=== PATIENT | male | born 1960 | race American Indian/Alaskan Native ===

== ENCOUNTER 2017-06-03 20:11 | Emergency (ER) | payer MEDICAID ==
[2017-06-03 20:34] VITALS: BP 165/104
[2017-06-03 21:04] LABS: Basophils % (Auto) 0.7 % (0.0-1.8); Eosinophils % (Auto) 8.6 % (0.0-4.3); Hematocrit 44.4 % (35.5-45.6); Hemoglobin 15.3 gm/dl (11.8-15.2); Mean Corpuscular HGB Conc 34 % (32-34); Mean Corpuscular Hemoglobin 32 pg (28-32); Mean Corpuscular Volume 94 fl (84-94); Platelet Count 189 K/mm3 (140-440); Red Blood Count 4.74 M/mm3 (3.65-5.03); Red Cell Distribution Width 15.6 % (13.2-15.2); White Blood Count 6.5 K/mm3 (4.5-11.0)
[2017-06-03 21:25] LABS: Anion Gap 20 mmol/L; Blood Urea Nitrogen 16 mg/dL (9-20); Calcium 9.5 mg/dL (8.4-10.2); Carbon Dioxide 23 mmol/L (22-30); Chloride 98.2 mmol/L (98-107); Glucose 88 mg/dL (75-100); Potassium 4.2 mmol/L (3.6-5.0); Sodium 137 mmol/L (137-145)
[2017-06-03] MEDS ORDERED: ATROVENT IH ONE (21:45)
[2017-06-03] MEDS ORDERED: TORADOL IV ONE (21:45)
[2017-06-03] MEDS ORDERED: MAGNESIUM SULFATE 2GM/50ML 2 GM/50 ML BAG IV ONE (21:46)
[2017-06-03] MEDS ORDERED: NACL 0.9% 250ML 250 ML IV ONE (21:46)
[2017-06-03] MEDS ORDERED: PROVENTIL IH ONE (21:46)
--- NOTE | 2017-06-03 21:49 | Emergency Department Report ---
ED General Adult HPI - General Chief complaint: Dyspnea/Respdistress Stated complaint: DAVIS Time Seen by Provider: 06/03/17 21:39 Source: patient, EMS (ems notes not available at time of chart dictation), RN notes reviewed, old records reviewed Mode of arrival: Stretcher Limitations: Other (patient is a very poor historian) - History of Present Illness Initial comments: This is a 56-year-old male, he is previously unknown to me. Past medical history includes HIV, currently on highly active antiretroviral therapy, he does not know his CD4 count, he does not know his viral load. Patient also has a history of COPD, he does not think that he is home oxygen dependent. The patient was recently admitted to the hospital for presumed COPD exacerbation on April 2017. He had an inconclusive CT scan of the chest, which demonstrated no large segmental emboli, but the distal segments were not well visualized. His bilateral lower extremity DVT study was read as negative. The patient is brought to the hospital by EMS today for cough, wheezing, chest tightness, shortness of breath. Patient cannot describe exacerbating or relieving factors. Patient also complains of chest tightness, and congestion. Patient complains of mucous production. -: Gradual Location: chest, back Severity scale (0 -10): 6 Quality: aching Consistency: intermittent Improves with: none Associated Symptoms: chest pain, cough, shortness of breath - Related Data Home Medications Medication Instructions Recorded Confirmed Last Taken Prezcobix 800 mg-150 mg (Nf) 1 mg PO DAILY 04/13/17 06/03/17 06/02/17 Truvada 167 mg-250 mg Tablet 200 mg PO DAILY 04/13/17 06/03/17 06/02/17 Previous Rx's Medication Instructions Recorded Last Taken Type Colchicine [Colcrys] 0.6 mg PO BID PRN #60 tablet 04/14/17 06/02/17 Rx Cyclobenzaprine [Flexeril 10 MG 10 mg PO TID PRN #14 tablet 04/14/17 Unknown Rx TAB] Fluticasone [Flonase] 50 mcg NS QDAY #1 bottle 04/14/17 Unknown Rx Gabapentin [Neurontin] 400 mg PO Q8H #90 capsule 04/14/17 06/02/17 Rx HYDROcodone/APAP 7.5-325 [[place] 1 each PO Q6HR PRN #14 tablet 04/14/17 Unknown Rx 7.5-325 mg TAB] Lopinavir/Ritonavir [Kal[place] 1 each PO BID tablet 04/14/17 Unknown Rx 200-50 mg] Loratadine [Claritin] 10 mg PO DAILY #30 tablet 04/14/17 Unknown Rx predniSONE [Deltasone] 10 mg PO .TAPER #48 tab 04/14/17 Unknown Rx Albuterol Sulfate [Albuterol 0.63% 0.63 mg IH Q4HR PRN #2 ml 06/04/17 Unknown Rx NEBS] Albuterol Sulfate [Proair 90 mcg IH Q4HR PRN #2 aer.pow.ba 06/04/17 Unknown Rx Respiclick] Fluticasone [Flonase] 1 spray NS QDAY #1 bottle 06/04/17 Unknown Rx Ibuprofen [Motrin] 600 mg PO Q8H PRN #30 tablet 06/04/17 Unknown Rx Ipratropium [place] [Atrovent Hfa] 12.9 gm IH Q4HR #2 hfa.aer.ad 06/04/17 Unknown Rx Ipratropium [Atrovent NEB] 0.5 mg IH Q4HR #2 ml 06/04/17 Unknown Rx predniSONE [Deltasone] 40 mg PO QDAY #8 tab 06/04/17 Unknown Rx Allergies Allergy/AdvReac Type Severity Reaction Status Date / Time orange juice [[place] Juice] Allergy Swelling Verified 05/11/14 10:33 FRUIT Allergy Swelling Uncoded 09/07/14 09:26 ED Review of Systems ROS: Stated complaint: DAVIS Other details as noted in HPI Constitutional: malaise, weakness. denies: fever Eyes: denies: vision change ENT: congestion. denies: epistaxis Respiratory: cough, shortness of breath, SOB with exertion, SOB at rest, wheezing Cardiovascular: dyspnea on exertion Gastrointestinal: denies: vomiting Genitourinary: denies: dysuria Musculoskeletal: back pain, arthralgia, myalgia Skin: denies: lesions Neurological: weakness Psychiatric: as per HPI ED Past Medical Hx - Past Medical History Hx Arthritis: Yes Hx Psychiatric Treatment: Yes (out pt) Hx Asthma: Yes Hx COPD: Yes Hx HIV: Yes Additional medical history: chronic pain. HYPERTHYROID. GOUT - Surgical History Additional Surgical History: right hip surgery. HERNIA REPAIR - Social History Smoking Status: Current Every Day Smoker Substance Use Type: None - Medications Home Medications: Home Medications Medication Instructions Recorded Confirmed Last Taken Type Prezcobix 800 mg-150 mg (Nf) 1 mg PO DAILY 04/13/17 06/03/17 06/02/17 History Truvada 167 mg-250 mg Tablet 200 mg PO DAILY 04/13/17 06/03/17 06/02/17 History Colchicine [Colcrys] 0.6 mg PO BID PRN #60 tablet 04/14/17 06/03/17 06/02/17 Rx Cyclobenzaprine [Flexeril 10 MG 10 mg PO TID PRN #14 tablet 04/14/17 06/03/17 Unknown Rx TAB] Fluticasone [Flonase] 50 mcg NS QDAY #1 bottle 04/14/17 06/03/17 Unknown Rx Gabapentin [Neurontin] 400 mg PO Q8H #90 capsule 04/14/17 06/03/17 06/02/17 Rx HYDROcodone/APAP 7.5-325 [[place] 1 each PO Q6HR PRN #14 tablet 04/14/17 06/03/17 Unknown Rx 7.5-325 mg TAB] Lopinavir/Ritonavir [[place] 1 each PO BID tablet 04/14/17 06/03/17 Unknown Rx 200-50 mg] Loratadine [Claritin] 10 mg PO DAILY #30 tablet 04/14/17 06/03/17 Unknown Rx predniSONE [Deltasone] 10 mg PO .TAPER #48 tab 04/14/17 06/03/17 Unknown Rx Albuterol Sulfate [Albuterol 0.63% 0.63 mg IH Q4HR PRN #2 ml 06/04/17 Unknown Rx NEBS] Albuterol Sulfate [Proair 90 mcg IH Q4HR PRN #2 aer.pow.ba 06/04/17 Unknown Rx Respiclick] Fluticasone [Flonase] 1 spray NS QDAY #1 bottle 06/04/17 Unknown Rx Ibuprofen [Motrin] 600 mg PO Q8H PRN #30 tablet 06/04/17 Unknown Rx Ipratropium [place] [Atrovent Hfa] 12.9 gm IH Q4HR #2 hfa.aer.ad 06/04/17 Unknown Rx Ipratropium [Atrovent NEB] 0.5 mg IH Q4HR #2 ml 06/04/17 Unknown Rx predniSONE [Deltasone] 40 mg PO QDAY #8 tab 06/04/17 Unknown Rx ED Physical Exam - General Limitations: No Limitations General appearance: alert, in no apparent distress - Head Head exam: Present: atraumatic, normocephalic - Eye Eye exam: Present: normal appearance, EOMI. Absent: nystagmus - ENT ENT exam: Present: normal exam, normal orophraynx, mucous membranes moist, normal external ear exam - Neck Neck exam: Present: normal inspection - Respiratory Respiratory exam: Present: wheezes, rhonchi, chest wall tenderness. Absent: respiratory distress - Cardiovascular Cardiovascular Exam: Present: regular rate, normal rhythm, normal heart sounds. Absent: bradycardia, tachycardia, irregular rhythm, systolic murmur, diastolic murmur, rubs, gallop - GI/Abdominal GI/Abdominal exam: Present: soft, normal bowel sounds. Absent: distended, tenderness, guarding, rebound, rigid, pulsatile mass - Rectal Rectal exam: Present: deferred - Extremities Exam Extremities exam: Present: normal inspection, full ROM, normal capillary refill. Absent: tenderness, pedal edema, joint swelling, calf tenderness - Back Exam Back exam: Present: normal inspection, full ROM. Absent: tenderness, CVA tenderness (R), CVA tenderness (L), muscle spasm, paraspinal tenderness, vertebral tenderness - Neurological Exam Neurological exam: Present: alert, oriented X3, normal gait, other (Extraocular movements intact. Tongue midline. No facial droop. Facial sensation intact to light touch in the V1, V2, V3 distribution bilaterally. 5 and 5 strength in 4 extremities.. Sensation is intact to light touch in 4 extremities.). Absent : motor sensory deficit - Psychiatric Psychiatric exam: Present: normal affect, normal mood - Skin Skin exam: Present: warm, dry, intact, normal color. Absent: rash ED Course Vital Signs 06/03/17 06/03/17 06/03/17 20:33 20:56 21:52 Temperature 98.4 F Pulse Rate 96 H Pulse Rate [ 114 H Bilateral] Respiratory 20 20 Rate Respiratory 20 Rate [Bilateral ] Blood Pressure 165/104 [Left] O2 Sat by Pulse 97 96 Oximetry 06/03/17 06/03/17 22:14 23:55 Temperature 99.0 F Pulse Rate 110 H Pulse Rate [ 108 H Bilateral] Respiratory 18 Rate Respiratory 30 H Rate [Bilateral ] Blood Pressure [Left] O2 Sat by Pulse 94 Oximetry - Reevaluation(s) Reevaluation #1: 06/04/17 01:13 Patient observed in the ER for a prolonged period of time. He is able to ambulate without desaturation or symptomatology. He is currently sleeping currently on the stretcher in no distress, and he has been noted to be playing on a cellular phone multiple times without difficulty. ED Medical Decision Making - Lab Data Result diagrams: 06/03/17 20:45 06/03/17 20:45 Vital Signs 06/03/17 06/03/17 06/03/17 20:33 20:56 21:52 Temperature 98.4 F Pulse Rate 96 H Pulse Rate [ 114 H Bilateral] Respiratory 20 20 Rate Respiratory 20 Rate [Bilateral ] Blood Pressure 165/104 [Left] O2 Sat by Pulse 97 96 Oximetry 06/03/17 06/03/17 22:14 23:55 Temperature 99.0 F Pulse Rate 110 H Pulse Rate [ 108 H Bilateral] Respiratory 18 Rate Respiratory 30 H Rate [Bilateral ] Blood Pressure [Left] O2 Sat by Pulse 94 Oximetry Lab Results 06/03/17 06/03/17 06/03/17 Range/Units 20:45 20:45 20:45 WBC 6.5 (4.5-11.0) K/mm3 RBC 4.74 (3.65-5.03) M/mm3 Hgb 15.3 H (11.8-15.2) gm/dl Hct 44.4 (35.5-45.6) % MCV 94 (84-94) fl MCH 32 (28-32) pg MCHC 34 (32-34) % RDW 15.6 H (13.2-15.2) % Plt Count 189 (140-440) K/mm3 Lymph % (Auto) 15.1 (13.4-35.0) % [place] % (Auto) 10.6 H (0.0-7.3) % Eos % (Auto) 8.6 H (0.0-4.3) % Baso % (Auto) 0.7 (0.0-1.8) % Lymph # 1.0 L (1.2-5.4) K/mm3 [place] # 0.7 (0.0-0.8) K/mm3 Eos # 0.6 H (0.0-0.4) K/mm3 Baso # 0.0 (0.0-0.1) K/mm3 Seg Neutrophils % 65.0 (40.0-70.0) % Seg Neutrophils # 4.3 (1.8-7.7) K/mm3 PT 12.2 (12.2-14.9) Sec. INR 0.86 L (0.87-1.13) Sodium 137 (137-145) mmol/L Potassium 4.2 (3.6-5.0) mmol/L Chloride 98.2 (98-107) mmol/L Carbon Dioxide 23 (22-30) mmol/L Anion Gap 20 mmol/L BUN 16 (9-20) mg/dL Creatinine 1.3 (0.8-1.5) mg/dL Estimated GFR > 60 ml/min BUN/Creatinine Ratio 12.30 % Glucose 88 (75-100) mg/dL Calcium 9.5 (8.4-10.2) mg/dL Lactate Dehydrogenase (91-180) units/L Troponin T < 0.010 (0.00-0.029) ng/mL NT-Pro-B Natriuret Pep (0-900) pg/mL 06/03/17 06/03/17 Range/Units 23:01 23:01 WBC (4.5-11.0) K/mm3 RBC (3.65-5.03) M/mm3 Hgb (11.8-15.2) gm/dl Hct (35.5-45.6) % MCV (84-94) fl MCH (28-32) pg MCHC (32-34) % RDW (13.2-15.2) % Plt Count (140-440) K/mm3 Lymph % (Auto) (13.4-35.0) % [place] % (Auto) (0.0-7.3) % Eos % (Auto) (0.0-4.3) % Baso % (Auto) (0.0-1.8) % Lymph # (1.2-5.4) K/mm3 [place] # (0.0-0.8) K/mm3 Eos # (0.0-0.4) K/mm3 Baso # (0.0-0.1) K/mm3 Seg Neutrophils % (40.0-70.0) % Seg Neutrophils # (1.8-7.7) K/mm3 PT (12.2-14.9) Sec. INR (0.87-1.13) Sodium (137-145) mmol/L Potassium (3.6-5.0) mmol/L Chloride (98-107) mmol/L Carbon Dioxide (22-30) mmol/L Anion Gap mmol/L BUN (9-20) mg/dL Creatinine (0.8-1.5) mg/dL Estimated GFR ml/min BUN/Creatinine Ratio % Glucose (75-100) mg/dL Calcium (8.4-10.2) mg/dL Lactate Dehydrogenase 170 (91-180) units/L Troponin T < 0.010 (0.00-0.029) ng/mL NT-Pro-B Natriuret Pep 90.25 (0-900) pg/mL - EKG Data -: EKG Interpreted by Me - EKG Data 06/04/17 01:14 EKG #1 demonstrates , 105 bpm, tachycardia, normal axis, intervals, not morphologically consistent with STEMI, appears unchanged when compared to prior EKG from April 2017. Repeat EKG is unchanged with the exception of resolution of tachycardia. - Radiology Data Radiology results: image reviewed interpreted by me: X-ray of the chest demonstrates no acute disease or changes, appears unchanged when compared to prior - Medical Decision Making Differential diagnosis: Costochondritis, COPD exacerbation, pneumonia, bronchitis, myocarditis, pericarditis, acute coronary syndrome, drug-seeking behavior Assessment and plan: 56-year-old male with known history of COPD, with cough, wheezing, chest tightness. EKG unremarkable 2, unchanged from prior, troponin negative 2, LDH negative, clinical history most likely consistent with COPD exacerbation. Mild tachycardia appreciated, this is most likely secondary to albuterol administration. Low risk by PTA score, low risk by heart score, low risk by well's criteria, I do believe patient requires admission to the hospital at this time. He will be discharged with albuterol, Atrovent, steroids, instructions to follow up with outpatient primary care and pulmonology. Return precautions are reviewed. Critical care attestation.: If time is entered above; I have spent that time in minutes in the direct care of this critically ill patient, excluding procedure time. ED Disposition Clinical Impression: COPD (chronic obstructive pulmonary disease) Disposition: DC-01 TO HOME OR SELFCARE Is pt being admited?: No Does the pt Need Aspirin: No Condition: Stable Instructions: Chronic Obstructive Pulmonary Disease (ED) Additional Instructions: Continue current outpatient medications. Follow up with the primary care doctor or nuclear medicine specialist within the next week. Return to the ER right away with new pain, worsened pain, migration of pain, fevers, chills, confusion , intractable nausea or vomiting, inability to tolerate liquid feeds. Prescriptions: Albuterol Sulfate [Albuterol 0.63% NEBS] 0.63 mg IH Q4HR PRN #2 ml PRN Reason: Wheezing Albuterol Sulfate [Proair Respiclick] 90 mcg IH Q4HR PRN #2 aer.pow.ba PRN Reason: Wheezing Fluticasone [Flonase] 1 spray NS QDAY #1 bottle Ibuprofen [Motrin] 600 mg PO Q8H PRN #30 tablet PRN Reason: Pain Ipratropium [Atrovent NEB] 0.5 mg IH Q4HR #2 ml Ipratropium [place] [Atrovent Hfa] 12.9 gm IH Q4HR #2 hfa.aer.ad predniSONE [Deltasone] 40 mg PO QDAY #8 tab Referrals: PRIMARY CARE, [Primary Care Provider] - 3-5 Days BARRY VALDEZ MD [Staff Physician] - 3-5 Days LUCIA HOLLAND MD [Staff Physician] - 3-5 Days
[2017-06-03 23:18] LABS: INR 0.86 (0.87-1.13)
--- NOTE | 2017-06-04 08:08 | XRay Report ---
ROUTINE CHEST, TWO VIEWS: HISTORY: Shortness of breath. The trachea, heart, mediastinal contour, lung do and bony thorax are unremarkable. IMPRESSION: No acute cardiopulmonary process. No significant change since 04/11/17.
== END 2017-06-04 01:40 | disposition home or self-care (01) ==
LOC: ED 20:11
DX: J44.9 Chronic obstructive pulmonary disease, unspecified (principal); M19.90 Unspecified osteoarthritis, unspecified site; F17.200 Nicotine dependence, unspecified, uncomplicated; Z91.018 Allergy to other foods
CPT/HCPCS: 36415; 71020; 80048; 83615; 83880; 84484; 85025; 85610; 93005; 93010; 94640; 96365; 96375; 99284; J1885; J2930; J3475; J7050

== ENCOUNTER 2018-06-07 10:25 | Emergency (ER) | payer MEDICAID ==
[2018-06-07 11:46] LABS: Bilirubin,Urine NEG (Negative); Blood,Urine MOD (Negative); Color,Urine Yellow (Yellow); Protein,Urine <15 mg/dL mg/dL (Negative); Urobilinogen,Urine < 2.0 mg/dL (<2.0)
[2018-06-07] MEDS ORDERED: TORADOL IM ONE (13:30)
--- NOTE | 2018-06-07 13:58 | Emergency Department Report ---
ED Back Pain/Injury HPI - General Chief Complaint: Back Pain/Injury Stated Complaint: SEVERE KIDNEY PAIN/DARK URINATION Time Seen by Provider: 06/07/18 13:27 Source: patient Limitations: No Limitations - History of Present Illness Initial Comments: This is a 57-year-old male nontoxic, well nourished in appearance, no acute signs of distress presents to the ED with c/o of acute on chronic lower back pain. Patient stated that the past 2 days he was moving and developed this pain. Patient states has history of sciatica nerve pain which is similar symptoms as today. Patient states that pain radiates through to his bilateral lower extremity. Patient denies any trauma. Denies any bladder or bowel instability. Patient denies any urinary symptoms. Denies any fever, chills, nausea, vomiting, headache, stiff neck, chest pain or shortness of breath. Patient denies any numbness or tingling. Denies any allergies. MD Complaint: back pain Similar Symptoms Previously: Yes Radiation: left leg, right leg Severity: mild Severity scale (0 -10): 8 Quality: aching Consistency: intermittent Improves With: immobilization, supine, sitting upright Worsens With: movement, walking Context: while lifting, turning/twisting Associated Symptoms: denies: confusion, weakness, chest pain, numbness, difficulty walking, cough, difficulty urinating, diaphoresis, incontinence, fever/chills, constipation, headaches, abdominal pain, loss of appetite, malaise , nausea/vomiting, rash, seizure, shortness of breath, syncope - Related Data Home Medications Medication Instructions Recorded Confirmed Last Taken Prezcobix 800 mg-150 mg (Nf) 1 mg PO DAILY 04/13/17 06/03/17 06/02/17 Truvada 167 mg-250 mg Tablet 200 mg PO DAILY 04/13/17 06/03/17 06/02/17 Previous Rx's Medication Instructions Recorded Last Taken Type Colchicine [Colcrys] 0.6 mg PO BID PRN #60 tablet 04/14/17 06/02/17 Rx Cyclobenzaprine [Flexeril 10 MG 10 mg PO TID PRN #14 tablet 04/14/17 Unknown Rx TAB] Fluticasone [Flonase] 50 mcg NS QDAY #1 bottle 04/14/17 Unknown Rx Gabapentin [Neurontin] 400 mg PO Q8H #90 capsule 04/14/17 06/02/17 Rx HYDROcodone/APAP 7.5-325 [[place] 1 each PO Q6HR PRN #14 tablet 04/14/17 Unknown Rx 7.5-325 mg TAB] Lopinavir/Ritonavir [[place] 1 each PO BID tablet 04/14/17 Unknown Rx 200-50 mg] Loratadine [Claritin] 10 mg PO DAILY #30 tablet 04/14/17 Unknown Rx predniSONE [Deltasone] 10 mg PO .TAPER #48 tab 04/14/17 Unknown Rx Albuterol Sulfate [Albuterol 0.63% 0.63 mg IH Q4HR PRN #2 ml 06/04/17 Unknown Rx NEBS] Albuterol Sulfate [Proair 90 mcg IH Q4HR PRN #2 aer.pow.ba 06/04/17 Unknown Rx Respiclick] Fluticasone [Flonase] 1 spray NS QDAY #1 bottle 06/04/17 Unknown Rx Ibuprofen [Motrin] 600 mg PO Q8H PRN #30 tablet 06/04/17 Unknown Rx Ipratropium [place] [Atrovent Hfa] 12.9 gm IH Q4HR #2 hfa.aer.ad 06/04/17 Unknown Rx Ipratropium [Atrovent NEB] 0.5 mg IH Q4HR #2 ml 06/04/17 Unknown Rx predniSONE [Deltasone] 40 mg PO QDAY #8 tab 06/04/17 Unknown Rx Cyclobenzaprine [Flexeril] 10 mg PO QHS PRN #10 tablet 06/07/18 Unknown Rx Ibuprofen [Motrin] 600 mg PO Q8H PRN #30 tablet 06/07/18 Unknown Rx Allergies Allergy/AdvReac Type Severity Reaction Status Date / Time aspirin Allergy Unknown Verified 06/07/18 11:26 orange juice [[place] Juice] Allergy Swelling Verified 05/11/14 10:33 FRUIT Allergy Swelling Uncoded 09/07/14 09:26 ED Review of Systems ROS: Stated complaint: SEVERE KIDNEY PAIN/DARK URINATION Other details as noted in HPI Constitutional: denies: chills, fever Eyes: denies: eye pain, eye discharge, vision change ENT: denies: ear pain, throat pain Respiratory: denies: cough, shortness of breath, wheezing Cardiovascular: denies: chest pain, palpitations Endocrine: no symptoms reported Gastrointestinal: denies: abdominal pain, nausea, diarrhea Genitourinary: denies: urgency, dysuria Musculoskeletal: back pain. denies: joint swelling, arthralgia Skin: denies: rash, lesions Neurological: denies: headache, weakness, paresthesias Psychiatric: denies: anxiety, depression Hematological/Lymphatic: denies: easy bleeding, easy bruising ED Past Medical Hx - Past Medical History Hx Arthritis: Yes Hx Psychiatric Treatment: Yes (Manic Depression) Hx Asthma: Yes Hx COPD: Yes Hx HIV: Yes (-undetectable 06/07/2018) Additional medical history: chronic pain. HYPERTHYROID. GOUT - Surgical History Additional Surgical History: right hip surgery. HERNIA REPAIR - Social History Smoking Status: Current Every Day Smoker Substance Use Type: None - Medications Home Medications: Home Medications Medication Instructions Recorded Confirmed Last Taken Type Prezcobix 800 mg-150 mg (Nf) 1 mg PO DAILY 04/13/17 06/03/17 06/02/17 History Truvada 167 mg-250 mg Tablet 200 mg PO DAILY 04/13/17 06/03/17 06/02/17 History Colchicine [Colcrys] 0.6 mg PO BID PRN #60 tablet 04/14/17 06/03/17 06/02/17 Rx Cyclobenzaprine [Flexeril 10 MG 10 mg PO TID PRN #14 tablet 04/14/17 06/03/17 Unknown Rx TAB] Fluticasone [Flonase] 50 mcg NS QDAY #1 bottle 04/14/17 06/03/17 Unknown Rx Gabapentin [Neurontin] 400 mg PO Q8H #90 capsule 04/14/17 06/03/17 06/02/17 Rx HYDROcodone/APAP 7.5-325 [[place] 1 each PO Q6HR PRN #14 tablet 04/14/17 06/03/17 Unknown Rx 7.5-325 mg TAB] Lopinavir/Ritonavir [[place] 1 each PO BID tablet 04/14/17 06/03/17 Unknown Rx 200-50 mg] Loratadine [Claritin] 10 mg PO DAILY #30 tablet 04/14/17 06/03/17 Unknown Rx predniSONE [Deltasone] 10 mg PO .TAPER #48 tab 04/14/17 06/03/17 Unknown Rx Albuterol Sulfate [Albuterol 0.63% 0.63 mg IH Q4HR PRN #2 ml 06/04/17 Unknown Rx NEBS] Albuterol Sulfate [Proair 90 mcg IH Q4HR PRN #2 aer.pow.ba 06/04/17 Unknown Rx Respiclick] Fluticasone [Flonase] 1 spray NS QDAY #1 bottle 06/04/17 Unknown Rx Ibuprofen [Motrin] 600 mg PO Q8H PRN #30 tablet 06/04/17 Unknown Rx Ipratropium [place] [Atrovent Hfa] 12.9 gm IH Q4HR #2 hfa.aer.ad 06/04/17 Unknown Rx Ipratropium [Atrovent NEB] 0.5 mg IH Q4HR #2 ml 06/04/17 Unknown Rx predniSONE [Deltasone] 40 mg PO QDAY #8 tab 06/04/17 Unknown Rx Cyclobenzaprine [Flexeril] 10 mg PO QHS PRN #10 tablet 06/07/18 Unknown Rx Ibuprofen [Motrin] 600 mg PO Q8H PRN #30 tablet 06/07/18 Unknown Rx ED Physical Exam - General Limitations: No Limitations General appearance: alert, in no apparent distress - Head Head exam: Present: atraumatic, normocephalic - Eye Eye exam: Present: normal appearance Pupils: Present: normal accommodation - ENT ENT exam: Present: normal exam, mucous membranes moist - Neck Neck exam: Present: normal inspection, full ROM. Absent: tenderness, meningismus, lymphadenopathy - Respiratory Respiratory exam: Present: normal lung sounds bilaterally. Absent: respiratory distress, wheezes, rales, rhonchi, stridor, chest wall tenderness, accessory muscle use, decreased breath sounds, prolonged expiratory - Cardiovascular Cardiovascular Exam: Present: regular rate, normal rhythm, normal heart sounds. Absent: bradycardia, tachycardia, irregular rhythm, systolic murmur, diastolic murmur, rubs, gallop - GI/Abdominal GI/Abdominal exam: Present: soft, normal bowel sounds. Absent: distended, tenderness, guarding, rebound, rigid, diminished bowel sounds - Rectal Rectal exam: Present: deferred - Extremities Exam Extremities exam: Present: normal inspection, full ROM, normal capillary refill - Back Exam Back exam: Present: normal inspection, full ROM, paraspinal tenderness (lumbar paraspinal). Absent: tenderness, CVA tenderness (R), CVA tenderness (L), muscle spasm, vertebral tenderness, rash noted - Expanded Back Exam Expanded Back exam: Absent: saddle anesthesia Back exam: Negative Straight Leg Raising: Left, Right - Neurological Exam Neurological exam: Present: alert, oriented X3, normal gait - Psychiatric Psychiatric exam: Present: normal affect, normal mood - Skin Skin exam: Present: warm, dry, intact, normal color. Absent: rash ED Course Vital Signs 06/07/18 06/07/18 11:15 13:35 Temperature 98 F Pulse Rate 78 Respiratory 18 16 Rate Blood Pressure 133/78 O2 Sat by Pulse 100 Oximetry - Reevaluation(s) Reevaluation #1: 06/07/18 13:55 Patient is speaking in full sentences with no signs of distress noted. ED Medical Decision Making - Medical Decision Making This is a 57-year-old male that presents with low back strain. Patient is stable was examined by me. There is no spinal tenderness. There is no cauda equina syndrome during examination. No bladder or bowel instability. Patient received Toradol 30 mg IM and Prednisone in the ED which preceded his symptoms has resolved and subsided. Patient is discharged with muscle relaxant and Motrin. Patient was instructed not to operate any machinery while taking muscle relaxant as they cause her drowsiness. Patient was referred to Follow- up with a primary care doctor in 3-5 days or if symptoms worsen and continue return to emergency room as soon as possible. At time of discharge, the patient does not seem toxic or ill in appearance. No acute signs of distress noted. Patient agrees to discharge treatment plan of care. No further questions noted by the patient. This chart is dictated with using [employer] Dictation Program Critical care attestation.: If time is entered above; I have spent that time in minutes in the direct care of this critically ill patient, excluding procedure time. ED Disposition Clinical Impression: Low back strain Qualifiers: Encounter type: initial encounter Qualified Code(s): S39.012A - Strain of muscle, fascia and tendon of lower back, initial encounter Disposition: TO HOME OR SELFCARE Is pt being admited?: No Does the pt Need Aspirin: No Condition: Stable Instructions: Low Back Strain (ED), Cyclobenzaprine (By mouth) Additional Instructions: Follow-up with your primary care doctor in 3-5 days or if symptoms worsen such as bladder or bowel stability, chest pain, short of breath, numbness or tingling sensation in extremities, headache, dizziness, visual changes, nausea vomiting, or abdominal pain, return back to emergency room as was possible. Take ibuprofen and Flexeril as prescribed. Do not operate heavy machinery while taking Flexeril due to sedation Prescriptions: Cyclobenzaprine [Flexeril] 10 mg PO QHS PRN #10 tablet PRN Reason: Muscle Spasm Ibuprofen [Motrin] 600 mg PO Q8H PRN #30 tablet PRN Reason: Pain Referrals: BARRY HERNÁNDEZ MD [Primary Care Provider] - 3-5 Days PRIMARY CARE, [Referring] - 3-5 Days [facility] [Outside] - 3-5 Days
[2018-06-07 14:08] VITALS: BP 131/80
== END 2018-06-07 14:07 | disposition home or self-care (01) ==
LOC: ED 10:25
DX: S39.012A Strain of muscle, fascia and tendon of lower back, initial encounter (principal); M19.90 Unspecified osteoarthritis, unspecified site; J44.9 Chronic obstructive pulmonary disease, unspecified; M10.9 Gout, unspecified; E05.90 Thyrotoxicosis, unspecified without thyrotoxic crisis or storm; F17.200 Nicotine dependence, unspecified, uncomplicated; G89.29 Other chronic pain; F33.9 Major depressive disorder, recurrent, unspecified; Z91.018 Allergy to other foods; Z88.8 Allergy status to other drugs, medicaments and biological substances; X58.XXXA Exposure to other specified factors, initial encounter; Y93.89 Activity, other specified; Y92.89 Other specified places as the place of occurrence of the external cause; Y99.8 Other external cause status
CPT/HCPCS: 81001; 96372; 99282; J1885

== ENCOUNTER 2021-02-27 17:07 | Emergency (ER) | payer MEDICAID ==
--- NOTE | 2021-02-27 19:24 | Event Note ---
ED Screening Note Date of service: 02/27/21 Time: 19:23 ED Screening Note: 60-year-old male patient with history of HIV presents to the emergency department with complaints of bilateral flank pain and dark urine for 6 days. Pain is worse on the right. States he is compliant with his antiretroviral therapy and his last CD4 count was undetectable. Patient was reportedly seen in the emergency department earlier in his disease course but left without treatment. Prior to eloping, he was reportedly told "his blood looked toxic." Endorses prior history of kidney stones. General: Awake, appropriately interactive, no acute distress. Neck: Supple. Full range of motion intact. Cardiovascular: Normal peripheral perfusion. Pulmonary: No respiratory distress. Patient is speaking normally without use of accessory muscles. Skin: No apparent rashes or lesions. Neurological: No facial asymmetry. Speech is clear. Follows commands. Patient is alert and oriented. Musculoskeletal: Bilateral CVA tenderness. Bilateral flank tenderness. Psych: Cooperative. Appropriate mood and affect. Initial labs ordered; decision to pursue further diagnostic work-up (i.e. imaging) deferred to additional ED providers. I have greeted and performed a focused rapid initial assessment of this patient. A comprehensive ED assessment and evaluation of the patient, analysis of all test results, and completion of the medical decision-making process will be conducted by additional ED providers. This initial assessment/diagnostic orders/clinical plan/treatment(s) is/are subject to change based on patients health status, clinical progression and re-assessment. Further treatment and workup at subsequent clinical provider's discretion. Patient/guardian urged not to elope from the ED as their condition may be serious if not clinically assessed and managed.
[2021-02-27 20:03] LABS: Basophils % (Auto) 0.6 % (0.0-1.8); Eosinophils # (Auto) 0.3 K/mm3 (0.0-0.4); Eosinophils % (Auto) 4.1 % (0.0-4.3); Hematocrit 45.7 % (35.5-45.6); Hemoglobin 16.2 gm/dl (11.8-15.2); Lymphocytes % (Auto) 26.2 % (13.4-35.0); Mean Corpuscular HGB Conc 36 % (32-34); Mean Corpuscular Volume 97 fl (84-94); Monocytes # (Auto) 0.6 K/mm3 (0.0-0.8); Monocytes % (Auto) 8.5 % (0.0-7.3); Platelet Count 246 K/mm3 (140-440); Red Blood Count 4.74 M/mm3 (3.65-5.03); Red Cell Distribution Width 14.4 % (13.2-15.2)
[2021-02-27 20:15] LABS: Alanine Aminotransferase 20 units/L (7-56); Albumin 4.1 g/dL (3.9-5); BUN/Creatinine Ratio 17; Blood Urea Nitrogen 22 mg/dL (9-20); Hemolysis Index 12
[2021-02-27 22:20] LABS: Bilirubin,Urine NEG (Negative); Blood,Urine MOD (Negative); Color,Urine Yellow (Yellow); Mucus,Urine FEW /HPF; Protein,Urine <15 mg/dL mg/dL (Negative)
[2021-02-27] MEDS ORDERED: methylPREDNISolone Sod Succinate 125 MG/2 ML INJ IV ONE (22:49)
[2021-02-27] MEDS ORDERED: SODIUM CHLORIDE 0.9% 1000 ML 1,000 ML IV ONE (22:49)
--- NOTE | 2021-02-27 22:55 | Emergency Department Report ---
ED General Adult HPI - General Chief complaint: Urogenital-Male Stated complaint: BLOOD IN URINE PUI?: No Time Seen by Provider: 02/27/21 22:48 Source: patient Mode of arrival: Ambulatory Limitations: No Limitations - History of Present Illness Initial comments: Patient is a 60-year-old male who presents emergency room with complaints of right flank pain, gross hematuria, right mid back pain, mid back rash. Patient states his symptoms started 6 days ago. Patient dates all the symptoms are worsening. Patient states that his pain is a 10 out of 10. Patient states his flank pain is in the right flank and radiates to the right lower quadrant. Patient states that he is seeing gross hematuria as well as redness to his urine when he urinates. Patient denies clots in his urine. Patient denies fever and chills. Patient states that he has a rash to his mid back that is starting in the right back and it radiates around to the lower part of the right ribs. Patient states there are small bumps. Patient states she had chickenpox as a child. Patient denies recent travel. Patient denies recent international travel. Patient denies exposure to the novel coronavirus. Patient denies sick contacts. Patient denies fever and chills. Patient denies cough. Patient denies diarrhea. Patient denies coming in contact with anybody with symptoms of the novel coronavirus. Patient states he has history of HIV, COPD, asthma, arthritis, depression, chronic pain, hypothyroidism, gout. Patient states that he sees the infectious disease clinic clinic at this hospital and he is undetectable. -: Sudden Severity scale (0 -10): 10 Quality: stabbing Consistency: constant Improves with: rest Worsens with: movement Associated Symptoms: denies: confusion, chest pain, cough, diaphoresis, fever/chills, headaches, loss of appetite, malaise, nausea/vomiting, rash, seizure, shortness of breath, syncope, weakness - Related Data Home Medications Medication Instructions Recorded Confirmed Last Taken Prezcobix 800 mg-150 mg (Nf) 1 mg PO DAILY 04/13/17 06/03/17 06/02/17 Truvada 167 mg-250 mg Tablet 200 mg PO DAILY 04/13/17 06/03/17 06/02/17 Previous Rx's Medication Instructions Recorded Last Taken Type Colchicine [Colcrys] 0.6 mg PO BID PRN #60 tablet 04/14/17 06/02/17 Rx Cyclobenzaprine [Flexeril 10 MG 10 mg PO TID PRN #14 tablet 04/14/17 Unknown Rx TAB] Fluticasone [Flonase] 50 mcg NS QDAY #1 bottle 04/14/17 Unknown Rx Gabapentin 400 mg PO Q8H #90 capsule 04/14/17 06/02/17 Rx Lopinavir/Ritonavir (Nf) [Kaletra 1 each PO BID tablet 04/14/17 Unknown Rx 200-50 mg (Nf)] Loratadine (Nf) [Claritin (Nf)] 10 mg PO DAILY #30 tablet 04/14/17 Unknown Rx predniSONE 10 mg PO .TAPER #48 tab 04/14/17 Unknown Rx Albuterol Sulfate [Albuterol 0.63% 0.63 mg IH Q4HR PRN #2 ml 06/04/17 Unknown Rx NEBS] Albuterol Sulfate [Proair 90 mcg IH Q4HR PRN #2 aer.pow.ba 06/04/17 Unknown Rx Respiclick] Fluticasone [Flonase] 1 spray NS QDAY #1 bottle 06/04/17 Unknown Rx Ibuprofen [Motrin] 600 mg PO Q8H PRN #30 tablet 06/04/17 Unknown Rx Ipratropium [place] [Atrovent Hfa] 12.9 gm IH Q4HR #2 hfa.aer.ad 06/04/17 Unknown Rx Ipratropium [Atrovent NEB] 0.5 mg IH Q4HR #2 ml 06/04/17 Unknown Rx predniSONE [Deltasone] 40 mg PO QDAY #8 tab 06/04/17 Unknown Rx Cyclobenzaprine [Flexeril] 10 mg PO QHS PRN #10 tablet 06/07/18 Unknown Rx Ibuprofen [Motrin] 600 mg PO Q8H PRN #30 tablet 06/07/18 Unknown Rx HYDROcodone/APAP 7.5-325 [[place] 1 each PO Q6HR PRN #10 tablet 02/28/21 Unknown Rx 7.5-325 mg TAB] Sulfamethoxazole/Trimethoprim 1 each PO BID 10 Days #20 tablet 02/28/21 Unknown Rx [Bactrim DS TAB] Valacyclovir HCl [Valtrex] 1,000 mg PO TID 7 Days #21 tablet 02/28/21 Unknown Rx methylPREDNISolone [Medrol 4MG 4 mg PO DAILY 6 Days #1 tab.ds.pk 02/28/21 Unknown Rx DOSEPAK (21 tabs)] Allergies Allergy/AdvReac Type Severity Reaction Status Date / Time aspirin Allergy Unknown Verified 06/07/18 11:26 orange juice [[place] Juice] Allergy Swelling Verified 05/11/14 10:33 FRUIT Allergy Swelling Uncoded 09/07/14 09:26 ED Review of Systems ROS: Stated complaint: BLOOD IN URINE Other details as noted in HPI Constitutional: denies: chills, fever Eyes: denies: eye pain, eye discharge, vision change ENT: denies: ear pain, throat pain Respiratory: denies: cough, shortness of breath, wheezing Cardiovascular: denies: chest pain, palpitations Endocrine: no symptoms reported Gastrointestinal: as per HPI, abdominal pain. denies: nausea, diarrhea Genitourinary: as per HPI, hematuria. denies: urgency, dysuria Musculoskeletal: as per HPI, back pain. denies: joint swelling, arthralgia Skin: as per HPI, rash. denies: lesions Neurological: denies: headache, weakness, paresthesias Psychiatric: denies: anxiety, depression Hematological/Lymphatic: denies: easy bleeding, easy bruising ED Past Medical Hx - Past Medical History Previous Medical History?: Yes Hx Arthritis: Yes Hx Psychiatric Treatment: Yes (Manic Depression) Hx Asthma: Yes Hx COPD: Yes Hx HIV: Yes (-undetectable 06/07/2018) Additional medical history: chronic pain. HYPERTHYROID. GOUT - Surgical History Past Surgical History?: Yes Additional Surgical History: right hip surgery. HERNIA REPAIR - Family History Family history: no significant - Social History Smoking Status: Current Every Day Smoker Substance Use Type: None - Medications Home Medications: Home Medications Medication Instructions Recorded Confirmed Last Taken Type Prezcobix 800 mg-150 mg (Nf) 1 mg PO DAILY 04/13/17 06/03/17 06/02/17 History Truvada 167 mg-250 mg Tablet 200 mg PO DAILY 04/13/17 06/03/17 06/02/17 History Colchicine [Colcrys] 0.6 mg PO BID PRN #60 tablet 04/14/17 06/03/17 06/02/17 Rx Cyclobenzaprine [Flexeril 10 MG 10 mg PO TID PRN #14 tablet 04/14/17 06/03/17 Unknown Rx TAB] Fluticasone [Flonase] 50 mcg NS QDAY #1 bottle 04/14/17 06/03/17 Unknown Rx Gabapentin 400 mg PO Q8H #90 capsule 04/14/17 06/03/17 06/02/17 Rx Lopinavir/Ritonavir (Nf) [Kaletra 1 each PO BID tablet 04/14/17 06/03/17 Unknown Rx 200-50 mg (Nf)] Loratadine (Nf) [Claritin (Nf)] 10 mg PO DAILY #30 tablet 04/14/17 06/03/17 Unknown Rx predniSONE 10 mg PO .TAPER #48 tab 04/14/17 06/03/17 Unknown Rx Albuterol Sulfate [Albuterol 0.63% 0.63 mg IH Q4HR PRN #2 ml 06/04/17 Unknown Rx NEBS] Albuterol Sulfate [Proair 90 mcg IH Q4HR PRN #2 aer.pow.ba 06/04/17 Unknown Rx Respiclick] Fluticasone [Flonase] 1 spray NS QDAY #1 bottle 06/04/17 Unknown Rx Ibuprofen [Motrin] 600 mg PO Q8H PRN #30 tablet 06/04/17 Unknown Rx Ipratropium [place] [Atrovent Hfa] 12.9 gm IH Q4HR #2 hfa.aer.ad 06/04/17 Unkno wn Rx Ipratropium [Atrovent NEB] 0.5 mg IH Q4HR #2 ml 06/04/17 Unknown Rx predniSONE [Deltasone] 40 mg PO QDAY #8 tab 06/04/17 Unknown Rx Cyclobenzaprine [Flexeril] 10 mg PO QHS PRN #10 tablet 06/07/18 Unknown Rx Ibuprofen [Motrin] 600 mg PO Q8H PRN #30 tablet 06/07/18 Unknown Rx HYDROcodone/APAP 7.5-325 [[place] 1 each PO Q6HR PRN #10 tablet 02/28/21 Unknown Rx 7.5-325 mg TAB] Sulfamethoxazole/Trimethoprim 1 each PO BID 10 Days #20 tablet 02/28/21 Unknown Rx [Bactrim DS TAB] Valacyclovir HCl [Valtrex] 1,000 mg PO TID 7 Days #21 tablet 02/28/21 Unknown Rx methylPREDNISolone [Medrol 4MG 4 mg PO DAILY 6 Days #1 tab.ds.pk 02/28/21 Unknown Rx DOSEPAK (21 tabs)] ED Physical Exam - General Limitations: No Limitations General appearance: alert, in no apparent distress - Head Head exam: Present: atraumatic, normocephalic - Eye Eye exam: Present: normal appearance - ENT ENT exam: Present: mucous membranes moist - Neck Neck exam: Present: normal inspection - Respiratory Respiratory exam: Present: normal lung sounds bilaterally. Absent: respiratory distress, wheezes, rales - Cardiovascular Cardiovascular Exam: Present: regular rate, normal rhythm. Absent: systolic murmur, diastolic murmur, rubs, gallop - GI/Abdominal GI/Abdominal exam: Present: soft, tenderness (Right flank and right lower quadrant tenderness to palpation), normal bowel sounds, other (Right flank tenderness palpation) - Rectal Rectal exam: Present: deferred - Extremities Exam Extremities exam: Present: normal inspection - Back Exam Back exam: Present: normal inspection, tenderness (Tenderness noted to the right mid back and a vesicular rash noted.), CVA tenderness (R) - Neurological Exam Neurological exam: Present: alert, oriented X3 - Psychiatric Psychiatric exam: Present: normal affect, normal mood - Skin Skin exam: Present: warm, dry, normal color, vesicles (Right-sided vesicular rash noted to the mid back coursing around the right lower ribs to the right anterior ribs.). Absent: rash ED Course Vital Signs 02/27/21 02/27/21 02/28/21 18:06 23:29 02:45 Temperature 97.7 F Pulse Rate 79 73 74 Respiratory 20 18 18 Rate Blood Pressure 145/64 Blood Pressure 145/83 143/79 [Left] O2 Sat by Pulse 98 98 98 Oximetry - Reevaluation(s) Reevaluation #1: I discussed all results and clinical findings with patient. I discussed plan of care with patient. Patient agrees with plan of care. Patient is stable for discharge. Patient will be discharged home. Patient given discharge instructions. Patient voiced understanding of discharge instructions. 02/28/21 02:22 ED Medical Decision Making - Lab Data Result diagrams: 02/27/21 19:40 02/27/21 19:40 - Radiology Data Radiology results: report reviewed CT ABDOMEN AND PELVIS WITH CONTRAST INDICATION / CLINICAL INFORMATION: Right flank pain with gross hematuria for 6 days. TECHNIQUE: Axial CT images were obtained through the abdomen and pelvis after 100 cc Omnipaque [address] scans at this location are performed using CT dose reduction for ALARA by means of automated exposure control. COMPARISON: CT abdomen and pelvis with contrast from 04/12/2017 FINDINGS: Motion artifact limits this exam. LOWER CHEST: No significant abnormality. LIVER: No significant abnormality. GALLBLADDER: No significant abnormality. BILE DUCTS: No significant abnormality. PANCREAS: No significant abnormality. SPLEEN: No significant abnormality. ADRENALS: No significant abnormality. RIGHT KIDNEY / URETER: A subcentimeter simple cyst is seen along the right lower renal pole. No other significant abnormality. LEFT KIDNEY / URETER: There is a subcentimeter simple midpole cyst without other significant abnormalities. STOMACH / SMALL BOWEL: No significant abnormality. COLON: There is descending and sigmoid diverticulosis without evidence of diverticulitis. No other significant abnormality. APPENDIX: No significant abnormality. PERITONEUM: No free fluid. No free air. No fluid collection. LYMPH NODES: No significant adenopathy. AORTA / ARTERIES: No significant abnormality. IVC / VEINS: No significant abnormality. URINARY BLADDER: No significant abnormality. REPRODUCTIVE ORGANS: No significant abnormality. ADDITIONAL FINDINGS: None. SKELETAL SYSTEM: No acute abnormality. Mild degenerative changes are seen along the spine. IMPRESSION: 1. No acute abnormalities. 2. Additional findings as above. - Medical Decision Making Patient is a 60-year-old male who presents emergency room for multiple complaints. Patient complains of a painful rash to the right mid back radiating around the lower and anterior ribs chest wall. Patient also complained of rig ht flank pain and right lower back pain radiating to the lower abdomen. Patient also complained of hematuria. Patient had labs done which were essentially unremarkable. Patient had urine done which was negative for infection but showed a mild hematuria. Patient had a CT scan done which was negative for acute findings. Patient clinical findings are consistent with a prostatitis. Patient will be discharged. Treatment of shingles to include Medrol and Valtrex. Patient also be discharged home with a acute prostatitis treatment of antibiotics. Patient is stable for discharge. Patient discharged home. - Differential Diagnosis Shingles, rash, flank pain, prostatitis, kidney stone, Critical care attestation.: If time is entered above; I have spent that time in minutes in the direct care of this critically ill patient, excluding procedure time. ED Disposition Clinical Impression: Acute abdominal pain, Flank pain Abdominal pain Qualifiers: Abdominal location: right lower quadrant Qualified Code(s): R10.31 - Right lower quadrant pain Back pain Qualifiers: Back pain location: thoracic back pain Chronicity: acute Back pain laterality: right Qualified Code(s): M54.6 - Pain in thoracic spine Shingles Qualifiers: Herpes zoster complications: without complications Qualified Code(s): B02.9 - Zoster without complications Prostatitis Qualifiers: Prostatitis type: acute Qualified Code(s): N41.0 - Acute prostatitis Disposition: TO HOME OR SELFCARE Is pt being admited?: No Does the pt Need Aspirin: No Condition: Stable Instructions: Shingles, [id number], Flank Pain, Adult, Prostatitis, Easy-to-R ead Additional Instructions: Patient to follow-up with primary care in 2 to 3 days. Patient to follow-up with urologist in 2 to 3 days. Patient to rest. Patient to increase water. Patient to avoid strenuous exercise or heavy lifting until cleared by primary care. Patient to take Tylenol or ibuprofen as needed for pain. Patient to take meds as directed. Patient to return to the ER if condition worsens, changes or new symptoms arise. Prescriptions: Sulfamethoxazole/Trimethoprim [Bactrim DS TAB] 1 each PO BID 10 Days #20 tablet methylPREDNISolone [Medrol 4MG DOSEPAK (21 tabs)] 4 mg PO DAILY 6 Days #1 tab.ds.pk HYDROcodone/APAP 7.5-325 [[place] 7.5-325 mg TAB] 1 each PO Q6HR PRN #10 tablet PRN Reason: Pain Valacyclovir HCl [Valtrex] 1,000 mg PO TID 7 Days #21 tablet Referrals: PRIMARY CARE, [Primary Care Provider] - 2-3 Days SURYA LALA MD [Staff Physician] - 2-3 Days Time of Disposition: 02:34
[2021-02-27] MEDS ORDERED: valACYclovir 500 MG TAB PO ONE (23:15)
--- NOTE | 2021-02-28 01:52 | Cat Scan Report ---
CT ABDOMEN AND PELVIS WITH CONTRAST INDICATION / CLINICAL INFORMATION: Right flank pain with gross hematuria for 6 days. TECHNIQUE: Axial CT images were obtained through the abdomen and pelvis after 100 cc Omnipaque [address] scans at this location are performed using CT dose reduction for ALARA by means of automated exposure control. COMPARISON: CT abdomen and pelvis with contrast from 04/12/2017 FINDINGS: Motion artifact limits this exam. LOWER CHEST: No significant abnormality. LIVER: No significant abnormality. GALLBLADDER: No significant abnormality. BILE DUCTS: No significant abnormality. PANCREAS: No significant abnormality. SPLEEN: No significant abnormality. ADRENALS: No significant abnormality. RIGHT KIDNEY / URETER: A subcentimeter simple cyst is seen along the right lower renal pole. No other significant abnormality. LEFT KIDNEY / URETER: There is a subcentimeter simple midpole cyst without other significant abnormal ities. STOMACH / SMALL BOWEL: No significant abnormality. COLON: There is descending and sigmoid diverticulosis without evidence of diverticulitis. No other si gnificant abnormality. APPENDIX: No significant abnormality. PERITONEUM: No free fluid. No free air. No fluid collection. LYMPH NODES: No significant adenopathy. AORTA / ARTERIES: No significant abnormality. IVC / VEINS: No significant abnormality. URINARY BLADDER: No significant abnormality. REPRODUCTIVE ORGANS: No significant abnormality. ADDITIONAL FINDINGS: None. SKELETAL SYSTEM: No acute abnormality. Mild degenerative changes are seen along the spine. IMPRESSION: 1. No acute abnormalities. 2. Additional findings as above. Signer Name: Hima Oswald MD Signed: 02/28/2021 1:48 AM Workstation Name: [id number]
[2021-02-28 02:46] VITALS: BP 143/79
== END 2021-02-28 02:46 | disposition home or self-care (01) ==
LOC: ED 17:07
DX: N41.9 Inflammatory disease of prostate, unspecified (principal); B02.9 Zoster without complications; M54.6 Pain in thoracic spine; R10.9 Unspecified abdominal pain; M19.91 Primary osteoarthritis, unspecified site; J44.9 Chronic obstructive pulmonary disease, unspecified; F32.9 Major depressive disorder, single episode, unspecified; Z21 Asymptomatic human immunodeficiency virus [HIV] infection status; F17.200 Nicotine dependence, unspecified, uncomplicated; Z98.890 Other specified postprocedural states; Z79.899 Other long term (current) drug therapy; Z88.8 Allergy status to other drugs, medicaments and biological substances
CPT/HCPCS: 36415; 74177; 80053; 81001; 82140; 83690; 83735; 85025; 96361; 96374; 99284; J2930; J7030; Q9967